=== PATIENT | male | born 1950 | race Caucasian/White ===

== ENCOUNTER 2019-02-24 10:04 | Inpatient (IN) | payer OTHER ==
[~2019-02-24] VITALS: Ht 165.1 cm; Wt 85.7 kg
[2019-02-24] MEDS ORDERED: ALBUTEROL (0.083%) 2.5MG/3ML NEB HHN STA (10:09)
[2019-02-24] MEDS ORDERED: IPRATROPIUM BROMIDE (0.02%) 0.5MG/2.5ML NEB HHN STA (10:09)
[2019-02-24 10:41] LABS: HEMATOCRIT. 28.2 % (42.0-52.0); HEMOGLOBIN. 9.4 g/dL (14.0-18.0); MEAN CORPUSCULAR VOLUME 87.1 fL (80.0-94.0); MEAN PLATELET VOLUME 8.2 fl (7.4-10.4); PLATELET 227 x1000/uL (130-400); RED BLOOD CELL COUNT 3.24 mill/uL (4.7-6.1); RED CELL DISTRIBUTION WIDTH 14.8 % (11.6-14.6)
[2019-02-24 10:48] LABS: CHLORIDE 106 mEq/L (98-107)
[2019-02-24 11:06] LABS: PLATELET ESTIMATE NORMAL
[2019-02-24] MEDS ORDERED: FUROSEMIDE 40MG/4ML VIAL IVP ONE (12:00)
[2019-02-24] MEDS ORDERED: PIPERACILLIN/TAZOBACTAM 3.375GM/50ML PREMIX IV ONE (12:30)
[2019-02-24] MEDS ORDERED: ZOLPIDEM TARTRATE 5MG TABLET PO PRN (13:45)
[2019-02-24] MEDS ORDERED: GUAIFENESIN 200MG/10ML SUGAR FREE UDC PO PRN (13:45)
[2019-02-24] MEDS ORDERED: ONDANSETRON HCL 4MG/2ML INJ IV PRN (13:45)
[2019-02-24] MEDS ORDERED: DEXTROSE 50% WATER 50ML SYRINGE IV PRN (13:45)
[2019-02-24] MEDS ORDERED: MAGNESIUM/ALUMINUM HYDROXIDE/SIMETHICONE 30ML UDC PO PRN (13:45)
[2019-02-24] MEDS ORDERED: CLONIDINE 0.1MG TABLET PO PRN (13:45)
[2019-02-24] MEDS ORDERED: NITROGLYCERIN 0.4MG TABLET SL SL PRN (13:45)
[2019-02-24 14:28] LABS: TOTAL IRON BINDING CAPACITY 194 ug/dL (250-450)
[2019-02-24 14:30] LABS: LDL CHOLESTEROL 29 mg/dL (5-100)
[2019-02-24 14:31] LABS: HDL CHOLESTEROL 37 mg/dL (40-59)
[2019-02-24 14:32] LABS: T4 FREE 1.63 ng/dL (0.76-1.46)
[2019-02-24 14:44] LABS: FOLIC ACID (FOLATE) SERUM 10.2 ng/mL (>5.38)
[2019-02-24 14:48] LABS: CREATINE KINASE MB FRACTION 2.9 ng/mL (0.5-3.6)
[2019-02-24 15:09] LABS: BG BASE EXCESS -0.6 mmol/L (-2.0-2.0); BG BILEVEL POS AIRWAY PRESSURE 15/5; BG CARBOXYHEMOGLOBIN 0.3 % (0.5-1.5); BG FRACTION INSPIRED OXYGEN 50; BG HCO3 ACT 23.3 mmol/L (22.0-26.0); BG METHEMOGLOBIN 0.2 % (0.0-1.5); BG OXYHEMOGLOBIN 92.5 % (94.0-97.0); BG PCO2 35.3 mmHg (35.0-45.0); BG PH 7.438 (7.350-7.450); BG PO2 72.3 mmHg (75.0-100.0); BG SAMPLE SITE RIGHT RADIAL; BG TOTAL HEMOGLOBIN 9.1 g/dL (12.0-18.0); BG VENT MODE MASK - BIPAP; BG VENT RATE 16 set
[2019-02-24 16:14] VITALS: BP 130/66
[2019-02-24 16:30] VITALS: BP 130/66
[2019-02-24] MEDS ORDERED: METOLAZONE 10MG TABLET PO NR (16:30)
[2019-02-24] MEDS ORDERED: AZITHROMYCIN 500 MG in DEXT 5% WATER 250 ML IV SCH (17:30)
[2019-02-24] MEDS: BLOOD SUGAR DIAGNOSTIC STRIP TEST SCH ×2 (17:30→21:00)
[2019-02-24] MEDS ORDERED: CEFTRIAXONE 1 G PREMIX 50 ML IV SCH (18:30)
[2019-02-24] MEDS: CARVEDILOL 3.125 MG TABLET PO SCH (18:45)
[2019-02-24] MEDS: FAMOTIDINE 20MG TABLET PO SCH (19:10)
[2019-02-24] MEDS: FUROSEMIDE 40MG/4ML VIAL IVP SCH (19:10)
[2019-02-24] MEDS: ENOXAPARIN 80MG/0.8ML SYR SUBCUT SCH (19:11)
[2019-02-24] MEDS: INSULIN LISPRO 100 UNITS/ML SUBCUT SCH ×2 (19:14→22:19)
[2019-02-24 20:00] VITALS: BP 140/72
[2019-02-24] MEDS: LISINOPRIL 20MG TABLET PO SCH (20:15)
[2019-02-24] MEDS: CEFTRIAXONE 1 G PREMIX 50 ML IV SCH (20:15)
[2019-02-24] MEDS: SPIRONOLACTONE 25MG TABLET PO SCH (20:15)
[2019-02-24] MEDS: ASCORBIC ACID 500 MG TABLET PO SCH (20:16)
[2019-02-24 22:00] VITALS: BP 140/74
[2019-02-25] VITALS (15 sets, daily range): BP systolic 127–172; BP diastolic 54–133
[2019-02-25] MEDS: TRAMADOL 50MG TABLET PO PRN (00:07)
[2019-02-25 00:39] LABS: CREATINE KINASE MB FRACTION 2.2 ng/mL (0.5-3.6)
[2019-02-25] MEDS: CARVEDILOL 3.125 MG TABLET PO SCH ×2 (06:30→17:46)
[2019-02-25] MEDS: FUROSEMIDE 40MG/4ML VIAL IVP SCH ×2 (06:30→17:45)
[2019-02-25] MEDS: ENOXAPARIN 80MG/0.8ML SYR SUBCUT SCH (06:31)
[2019-02-25] MEDS: BLOOD SUGAR DIAGNOSTIC STRIP TEST SCH ×4 (07:30→21:00)
[2019-02-25] MEDS: INSULIN LISPRO 100 UNITS/ML SUBCUT SCH ×4 (08:00→22:06)
[2019-02-25 08:16] LABS: INR 3.8; PROTHROMBIN TIME 36.6 sec (9.6-11.0)
[2019-02-25] MEDS ORDERED: ASPIRIN 325MG EC TABLET PO SCH (09:00)
[2019-02-25] MEDS ORDERED: METOLAZONE 10MG TABLET PO SCH (09:00)
[2019-02-25] MEDS ORDERED: CEFTRIAXONE 1 G PREMIX 50 ML IV SCH (09:00)
[2019-02-25] MEDS: SPIRONOLACTONE 25MG TABLET PO SCH ×2 (09:05→20:48)
[2019-02-25] MEDS: LISINOPRIL 20MG TABLET PO SCH ×2 (09:05→20:48)
[2019-02-25] MEDS: ASCORBIC ACID 500 MG TABLET PO SCH ×2 (09:05→20:48)
[2019-02-25] MEDS: ZINC SULFATE 220 MG ( 50 ) CAPSULE PO SCH (09:05)
[2019-02-25] MEDS: IPRATROPIUM/ALBUTEROL 0.5-3(2.5)MG/3ML NEB NEB PRN ×3 (09:17→17:06)
[2019-02-25 10:44] LABS: HEMATOCRIT. 26.9 % (42.0-52.0); HEMOGLOBIN. 8.9 g/dL (14.0-18.0); MEAN CORPUSCULAR HEMOGLOBIN 29.1 pg (28.0-32.0); MEAN CORPUSCULAR VOLUME 87.7 fL (80.0-94.0); MEAN PLATELET VOLUME 9.5 fl (7.4-10.4); PLATELET 175 x1000/uL (130-400); RED BLOOD CELL COUNT 3.07 mill/uL (4.7-6.1); RED CELL DISTRIBUTION WIDTH 15.3 % (11.6-14.6)
[2019-02-25 10:55] LABS: CREATINE KINASE MB FRACTION 2.4 ng/mL (0.5-3.6)
[2019-02-25 12:53] LABS: CHLORIDE 108 mEq/L (98-107)
[2019-02-25] MEDS: FAMOTIDINE 20MG TABLET PO SCH (17:45)
[2019-02-25] MEDS ORDERED: AZITHROMYCIN 500 MG in DEXT 5% WATER 250 ML IV SCH (18:00)
[2019-02-25] MEDS: CEFTRIAXONE 1 G PREMIX 50 ML IV SCH (20:48)
[2019-02-25 22:13] LABS: PLATELET ESTIMATE NORMAL
[2019-02-26] VITALS (71 sets, daily range): BP systolic 81–182; BP diastolic 47–107
[2019-02-26] MEDS: IPRATROPIUM/ALBUTEROL 0.5-3(2.5)MG/3ML NEB NEB PRN (01:02)
[2019-02-26] MEDS: TRAMADOL 50MG TABLET PO PRN (01:54)
[2019-02-26 02:33] LABS: *AMPHETAMINES SCREEN URINE NEGATIVE (NEGATIVE); *BARBITURATES SCREEN URINE NEGATIVE (NEGATIVE); *BENZODIAZEPINES SCREEN URINE NEGATIVE (NEGATIVE); *COCAINE SCREEN URINE NEGATIVE (NEGATIVE)
[2019-02-26 02:34] LABS: CANNABINOID URINE SCREEN NEGATIVE (NEGATIVE); METHADONE URINE SCREEN NEGATIVE (NEGATIVE); OPIATES URINE SCREEN NEGATIVE (NEGATIVE); PHENCYCLIDINE URINE SCREEN NEGATIVE (NEGATIVE)
[2019-02-26] MEDS: CARVEDILOL 3.125 MG TABLET PO SCH (05:47)
[2019-02-26 06:09] LABS: HEMATOCRIT. 23.7 % (42.0-52.0); MEAN CORPUSCULAR HEMOGLOBIN 29.1 pg (28.0-32.0); MEAN CORPUSCULAR VOLUME 86.3 fL (80.0-94.0); PLATELET 157 x1000/uL (130-400); RED BLOOD CELL COUNT 2.75 mill/uL (4.7-6.1); RED CELL DISTRIBUTION WIDTH 15.3 % (11.6-14.6)
[2019-02-26 06:42] LABS: CHLORIDE 105 mEq/L (98-107)
[2019-02-26 06:48] LABS: PHOSPHORUS 3.7 mg/dL (2.5-4.9)
[2019-02-26] MEDS: BLOOD SUGAR DIAGNOSTIC STRIP TEST SCH ×3 (07:30→21:11)
[2019-02-26] MEDS: INSULIN LISPRO 100 UNITS/ML SUBCUT SCH ×4 (07:58→21:22)
[2019-02-26] MEDS: FUROSEMIDE 40MG/4ML VIAL IVP SCH ×2 (08:35→17:52)
[2019-02-26] MEDS: ASPIRIN 81MG EC TABLET PO SCH (08:35)
[2019-02-26] MEDS: LISINOPRIL 20MG TABLET PO SCH ×2 (08:35→21:00)
[2019-02-26] MEDS: ASCORBIC ACID 500 MG TABLET PO SCH ×2 (08:35→21:21)
[2019-02-26] MEDS: ZINC SULFATE 220 MG ( 50 ) CAPSULE PO SCH (08:36)
[2019-02-26] MEDS: SPIRONOLACTONE 25MG TABLET PO SCH (08:36)
[2019-02-26 10:29] LABS: BG BASE EXCESS 5.1 mmol/L (-2.0-2.0); BG BILEVEL POS AIRWAY PRESSURE 17/5; BG CARBOXYHEMOGLOBIN 0.3 % (0.5-1.5); BG DEOXYHEMOGLOBIN 6.9 % (0.0-5.0); BG FRACTION INSPIRED OXYGEN 80; BG METHEMOGLOBIN 0.3 % (0.0-1.5); BG OXYGEN SATURATION 93.1 % (92.0-98.5); BG OXYHEMOGLOBIN 92.5 % (94.0-97.0); BG PCO2 39.8 mmHg (35.0-45.0); BG PH 7.481 (7.350-7.450); BG PO2 72.3 mmHg (75.0-100.0); BG SAMPLE SITE RIGHT BRACHIAL; BG TOTAL HEMOGLOBIN 7.8 g/dL (12.0-18.0); BG VENT MODE MASK - BIPAP
[2019-02-26] MEDS ORDERED: METOLAZONE 10MG TABLET PO SCH (10:45)
[2019-02-26 13:06] LABS: INR 3.7; PROTHROMBIN TIME 35.5 sec (9.6-11.0)
[2019-02-26] MEDS ORDERED: SODIUM CHLORIDE 0.9% 10ML VIAL ONE (13:45)
[2019-02-26] MEDS ORDERED: ETOMIDATE 2MG/ML 10ML VIAL IV ONE (13:45)
[2019-02-26] MEDS ORDERED: VECURONIUM BROMIDE 10 MG/VIAL IV ONE (13:45)
[2019-02-26] MEDS ORDERED: VANCOMYCIN 1500MG in DEXTROSE 5% WATER 250ML IV SCH (14:00)
[2019-02-26 14:32] LABS: BG BASE EXCESS 3.4 mmol/L (-2.0-2.0); BG CARBOXYHEMOGLOBIN 0.2 % (0.5-1.5); BG DEOXYHEMOGLOBIN 2.8 % (0.0-5.0); BG FRACTION INSPIRED OXYGEN 100; BG HCO3 ACT 29.1 mmol/L (22.0-26.0); BG OXYGEN SATURATION 97.2 % (92.0-98.5); BG PCO2 49.7 mmHg (35.0-45.0); BG PH 7.386 (7.350-7.450); BG PO2 115.2 mmHg (75.0-100.0); BG SAMPLE SITE LEFT RADIAL; BG TIDAL VOLUME(mL) 500 mL; BG TOTAL HEMOGLOBIN 10.6 g/dL (12.0-18.0); BG VENT MODE VENT - A/C; BG VENT RATE 16 set
[2019-02-26] MEDS: PROPOFOL 10MG/ML 100ML 100 ML IV PRN ×2 (14:32→20:16)
[2019-02-26] MEDS: PIPERACILLIN/TAZOBACTAM 2.25 G in DEXTROSE 5% WATER 50 ML IV SCH ×2 (14:32→21:21)
[2019-02-26] MEDS: FENTANYL CITRATE/PF 500 MCG in SODIUM CHLORIDE 0.9% 40 ML IV PRN ×2 (15:08→20:16)
[2019-02-26] MEDS: ACETYLCYSTEINE 100MG/ML 10% VIAL 4ML INH SCH (16:05)
[2019-02-26] MEDS: IPRATROPIUM/ALBUTEROL 0.5-3(2.5)MG/3ML NEB HHN SCH ×2 (16:05→21:05)
[2019-02-26 16:44] LABS: PLATELET ESTIMATE NORMAL
[2019-02-26] MEDS ORDERED: FUROSEMIDE 40MG/4ML VIAL IVP SCH (17:00)
[2019-02-26] MEDS: FAMOTIDINE 20MG TABLET PO SCH (17:00)
[2019-02-26] MEDS: CARVEDILOL 6.25 MG TABLET PO SCH (21:00)
[2019-02-27] VITALS (94 sets, daily range): BP systolic 79–135; BP diastolic 41–74
[2019-02-27] MEDS: ACETYLCYSTEINE 100MG/ML 10% VIAL 4ML INH SCH ×3 (01:04→16:21)
[2019-02-27] MEDS: IPRATROPIUM/ALBUTEROL 0.5-3(2.5)MG/3ML NEB HHN SCH ×6 (01:04→20:09)
[2019-02-27] MEDS: FENTANYL CITRATE/PF 500 MCG in SODIUM CHLORIDE 0.9% 40 ML IV PRN ×3 (03:17→17:53)
[2019-02-27] MEDS: ACETAMINOPHEN 325MG TABLET PO PRN ×2 (04:33→17:55)
[2019-02-27] MEDS: PIPERACILLIN/TAZOBACTAM 2.25 G in DEXTROSE 5% WATER 50 ML IV SCH ×3 (06:03→21:15)
[2019-02-27] MEDS: INSULIN LISPRO 100 UNITS/ML SUBCUT SCH ×4 (06:03→21:13)
[2019-02-27] MEDS: BLOOD SUGAR DIAGNOSTIC STRIP TEST SCH ×4 (06:03→21:13)
[2019-02-27 06:21] LABS: PROTHROMBIN TIME 40.2 sec (9.6-11.0)
[2019-02-27 06:22] LABS: HEMATOCRIT. 23.7 % (42.0-52.0); HEMOGLOBIN. 7.8 g/dL (14.0-18.0); MEAN CORPUSCULAR HEMOGLOBIN 28.6 pg (28.0-32.0); MEAN CORPUSCULAR VOLUME 87.6 fL (80.0-94.0); MEAN PLATELET VOLUME 9.2 fl (7.4-10.4); PLATELET 149 x1000/uL (130-400); RED BLOOD CELL COUNT 2.71 mill/uL (4.7-6.1); RED CELL DISTRIBUTION WIDTH 15.4 % (11.6-14.6)
[2019-02-27 06:38] LABS: CHLORIDE 104 mEq/L (98-107)
[2019-02-27 06:48] LABS: PHOSPHORUS 5.3 mg/dL (2.5-4.9)
[2019-02-27 07:25] LABS: INR 4.2
[2019-02-27 07:32] LABS: BG BASE EXCESS 7.7 mmol/L (-2.0-2.0); BG CARBOXYHEMOGLOBIN 0.4 % (0.5-1.5); BG DEOXYHEMOGLOBIN 2.2 % (0.0-5.0); BG FRACTION INSPIRED OXYGEN 80; BG HCO3 ACT 33.3 mmol/L (22.0-26.0); BG METHEMOGLOBIN 0.3 % (0.0-1.5); BG OXYGEN SATURATION 97.8 % (92.0-98.5); BG OXYHEMOGLOBIN 97.1 % (94.0-97.0); BG PCO2 55.5 mmHg (35.0-45.0); BG PH 7.396 (7.350-7.450); BG PO2 121.5 mmHg (75.0-100.0); BG SAMPLE SITE RIGHT RADIAL; BG TIDAL VOLUME(mL) 500 mL; BG TOTAL HEMOGLOBIN 6.5 g/dL (12.0-18.0); BG VENT MODE VENT - A/C; BG VENT RATE 14 set
[2019-02-27] MEDS: ASCORBIC ACID 500 MG TABLET PO SCH ×2 (08:13→21:13)
[2019-02-27] MEDS: ZINC SULFATE 220 MG ( 50 ) CAPSULE PO SCH (08:13)
[2019-02-27] MEDS: FUROSEMIDE 40MG/4ML VIAL IVP SCH (08:13)
[2019-02-27] MEDS: CARVEDILOL 6.25 MG TABLET PO SCH (08:15)
[2019-02-27] MEDS: LISINOPRIL 20MG TABLET PO SCH (08:15)
[2019-02-27] MEDS ORDERED: SODIUM BICARBONATE 4% (2.4MEQ) 5ML VIAL IV ONE (08:47)
[2019-02-27] MEDS ORDERED: LIDOCAINE HCL 1% 20ML VIAL (Pyxis) INJ ONE (08:47)
[2019-02-27] MEDS ORDERED: FUROSEMIDE 40MG/4ML VIAL IVP SCH (09:00)
[2019-02-27] MEDS ORDERED: POTASSIUM CHLORIDE 20MEQ TABLET SR PO SCH (09:00)
[2019-02-27] MEDS: ASPIRIN 81MG EC TABLET PO SCH (09:00)
[2019-02-27 09:21] LABS: CLARITY URINE TURBID (CLEAR); COLOR URINE YELLOW (YELLOW); KETONES URINE NEGATIVE (NEGATIVE); LEUKOCYTE ESTERASE URINE 2+ (NEGATIVE); NITRITE URINE NEGATIVE (NEGATIVE); OCCULT BLOOD URINE 2+ (NEGATIVE); PROTEIN URINE 1+ (NEGATIVE); SPECIFIC GRAVITY URINE 1.017 (1.005-1.030); UROBILINOGEN URINE 0.2 E.U./dL (0.2-1.0)
[2019-02-27] MEDS: PROPOFOL 10MG/ML 100ML 100 ML IV PRN (10:28)
[2019-02-27] MEDS ORDERED: ALBUMIN HUMAN 12.5GM/50ML (25%) IV ONE (11:15)
[2019-02-27] MEDS ORDERED: ALBUMIN HUMAN 12.5GM/50ML (25%) IV NR ×2 (12:00)
[2019-02-27] MEDS ORDERED: PROPOFOL 10MG/ML 100ML 100 ML IV PRN (12:01)
[2019-02-27] MEDS: FAMOTIDINE 20MG TABLET PO SCH (16:24)
[2019-02-27 16:48] LABS: PLATELET ESTIMATE NORMAL
[2019-02-27] MEDS: CARVEDILOL 3.125 MG TABLET PO SCH (21:14)
[2019-02-28] VITALS (99 sets, daily range): BP systolic 79–153; BP diastolic 40–99
[2019-02-28] MEDS: IPRATROPIUM/ALBUTEROL 0.5-3(2.5)MG/3ML NEB HHN SCH ×6 (00:14→20:41)
[2019-02-28] MEDS: ACETYLCYSTEINE 100MG/ML 10% VIAL 4ML INH SCH ×3 (00:15→16:35)
[2019-02-28] MEDS: FENTANYL CITRATE/PF 500 MCG in SODIUM CHLORIDE 0.9% 40 ML IV PRN ×2 (02:50→19:35)
[2019-02-28] MEDS: PIPERACILLIN/TAZOBACTAM 2.25 G in DEXTROSE 5% WATER 50 ML IV SCH ×3 (05:49→23:04)
[2019-02-28] MEDS: ACETAMINOPHEN 325MG TABLET PO PRN ×2 (05:49→19:48)
[2019-02-28] MEDS: INSULIN LISPRO 100 UNITS/ML SUBCUT SCH ×4 (06:00→20:30)
[2019-02-28] MEDS: BLOOD SUGAR DIAGNOSTIC STRIP TEST SCH ×4 (06:00→20:22)
[2019-02-28 06:27] LABS: HEMATOCRIT. 22.8 % (42.0-52.0); HEMOGLOBIN. 7.5 g/dL (14.0-18.0); MEAN CORPUSCULAR HEMOGLOBIN 29.1 pg (28.0-32.0); MEAN CORPUSCULAR VOLUME 88.5 fL (80.0-94.0); MEAN PLATELET VOLUME 9.3 fl (7.4-10.4); PLATELET 128 x1000/uL (130-400); RED BLOOD CELL COUNT 2.58 mill/uL (4.7-6.1)
[2019-02-28 06:33] LABS: PROTHROMBIN TIME 46.6 sec (9.6-11.0)
[2019-02-28] MEDS: NOREPINEPHRINE 16 MG in DEXT 5% WATER 234 ML IV PRN ×2 (06:33→09:49)
[2019-02-28 06:45] LABS: INR 4.9
[2019-02-28 08:58] LABS: BG BASE EXCESS 8.9 mmol/L (-2.0-2.0); BG CARBOXYHEMOGLOBIN 0.3 % (0.5-1.5); BG DEOXYHEMOGLOBIN 8.6 % (0.0-5.0); BG FRACTION INSPIRED OXYGEN 80; BG HCO3 ACT 35.3 mmol/L (22.0-26.0); BG METHEMOGLOBIN 0.4 % (0.0-1.5); BG OXYGEN SATURATION 91.3 % (92.0-98.5); BG OXYHEMOGLOBIN 90.7 % (94.0-97.0); BG PCO2 62.4 mmHg (35.0-45.0); BG PO2 68.6 mmHg (75.0-100.0); BG SAMPLE SITE RIGHT BRACHIAL; BG TIDAL VOLUME(mL) 500 mL; BG TOTAL HEMOGLOBIN 7.5 g/dL (12.0-18.0); BG VENT MODE VENT - A/C; BG VENT RATE 14 set
[2019-02-28] MEDS: CARVEDILOL 3.125 MG TABLET PO SCH ×2 (09:00→20:02)
[2019-02-28] MEDS ORDERED: LISINOPRIL 5MG TABLET PO SCH (09:00)
[2019-02-28 09:32] LABS: PLATELET ESTIMATE NORMAL
[2019-02-28] MEDS: ZINC SULFATE 220 MG ( 50 ) CAPSULE PO SCH (09:44)
[2019-02-28] MEDS: ASCORBIC ACID 500 MG TABLET PO SCH ×2 (09:44→20:02)
[2019-02-28] MEDS: ASPIRIN 81MG EC TABLET PO SCH (09:45)
[2019-02-28] MEDS ORDERED: VANCOMYCIN 1250MG in DEXTROSE 5% WATER 250ML IV SCH (10:00)
[2019-02-28] MEDS ORDERED: METOLAZONE 10MG TABLET PO SCH (12:30)
[2019-02-28] MEDS: FUROSEMIDE 100MG/10ML VIAL IVP SCH ×2 (12:44→20:02)
[2019-02-28 17:02] LABS: D-DIMER 14.85 mg/L FEU (<0.50)
[2019-02-28 17:31] LABS: FIBRINOGEN > 850 mg/dL (200-400)
[2019-02-28] MEDS: FAMOTIDINE 20MG TABLET PO SCH (18:17)
[2019-02-28] MEDS: PROPOFOL 10MG/ML 100ML 100 ML IV PRN (18:19)
[2019-03-01] VITALS (102 sets, daily range): BP systolic 77–189; BP diastolic 40–107
[2019-03-01] MEDS: IPRATROPIUM/ALBUTEROL 0.5-3(2.5)MG/3ML NEB HHN SCH ×7 (00:28→23:55)
[2019-03-01] MEDS: ACETYLCYSTEINE 100MG/ML 10% VIAL 4ML INH SCH ×4 (00:28→23:56)
[2019-03-01] MEDS: PROPOFOL 10MG/ML 100ML 100 ML IV PRN ×2 (02:26→07:53)
[2019-03-01 05:52] LABS: HEMATOCRIT. 21.4 % (42.0-52.0); MEAN CORPUSCULAR HEMOGLOBIN 29.1 pg (28.0-32.0); MEAN CORPUSCULAR VOLUME 88.3 fL (80.0-94.0); MEAN PLATELET VOLUME 9.3 fl (7.4-10.4); PLATELET 125 x1000/uL (130-400); RED BLOOD CELL COUNT 2.42 mill/uL (4.7-6.1); RED CELL DISTRIBUTION WIDTH 15.3 % (11.6-14.6)
[2019-03-01 05:57] LABS: PARTIAL THROMBOPLASTIN TIME 56.5 sec (23.4-31.0); PROTHROMBIN TIME 42.7 sec (9.6-11.0)
[2019-03-01 06:30] LABS: PHOSPHORUS 4.1 mg/dL (2.5-4.9)
[2019-03-01] MEDS: BLOOD SUGAR DIAGNOSTIC STRIP TEST SCH ×4 (06:41→20:53)
[2019-03-01] MEDS: PIPERACILLIN/TAZOBACTAM 2.25 G in DEXTROSE 5% WATER 50 ML IV SCH (06:49)
[2019-03-01 06:51] LABS: INR 4.5
[2019-03-01] MEDS: INSULIN LISPRO 100 UNITS/ML SUBCUT SCH ×4 (06:54→20:52)
[2019-03-01 07:45] LABS: BG BASE EXCESS 7.7 mmol/L (-2.0-2.0); BG CARBOXYHEMOGLOBIN 0.3 % (0.5-1.5); BG DEOXYHEMOGLOBIN 2.7 % (0.0-5.0); BG FRACTION INSPIRED OXYGEN 90; BG HCO3 ACT 32.4 mmol/L (22.0-26.0); BG METHEMOGLOBIN 0.3 % (0.0-1.5); BG OXYGEN SATURATION 97.3 % (92.0-98.5); BG OXYHEMOGLOBIN 96.7 % (94.0-97.0); BG PCO2 47.3 mmHg (35.0-45.0); BG PH 7.453 (7.350-7.450); BG PO2 109.1 mmHg (75.0-100.0); BG SAMPLE SITE RIGHT RADIAL; BG TIDAL VOLUME(mL) 500 mL; BG TOTAL HEMOGLOBIN 7.2 g/dL (12.0-18.0); BG VENT MODE VENT - A/C; BG VENT RATE 18 set
[2019-03-01 07:47] LABS: PLATELET ESTIMATE SLIGHTLY DECREASED
[2019-03-01] MEDS: CARVEDILOL 3.125 MG TABLET PO SCH ×2 (08:13→20:28)
[2019-03-01] MEDS: ASPIRIN 81MG EC TABLET PO SCH (08:14)
[2019-03-01] MEDS: FUROSEMIDE 100MG/10ML VIAL IVP SCH ×2 (08:14→21:11)
[2019-03-01] MEDS: ASCORBIC ACID 500 MG TABLET PO SCH ×2 (08:14→20:28)
[2019-03-01] MEDS: DOCUSATE SODIUM 100MG CAPSULE PO PRN (08:14)
[2019-03-01] MEDS: ZINC SULFATE 220 MG ( 50 ) CAPSULE PO SCH (08:14)
[2019-03-01] MEDS: ACETAMINOPHEN 325MG TABLET PO PRN ×3 (09:02→23:57)
[2019-03-01] MEDS: FENTANYL CITRATE/PF 500 MCG in SODIUM CHLORIDE 0.9% 40 ML IV PRN ×2 (09:10→18:04)
[2019-03-01] MEDS ORDERED: ALBUMIN HUMAN 12.5G/250ML (5%) IV PRN (09:30)
[2019-03-01] MEDS ORDERED: HEPARIN 1000 UNITS/ML 10ML ONE (09:45)
[2019-03-01] MEDS ORDERED: LIDOCAINE HCL 1% 20ML VIAL (Pyxis) INJ ONE (09:45)
[2019-03-01] MEDS ORDERED: PHYTONADIONE 10MG/ML AMP SUBCUT NR (11:00)
[2019-03-01 12:02] LABS: BG BASE EXCESS 8.7 mmol/L (-2.0-2.0); BG CARBOXYHEMOGLOBIN 0.3 % (0.5-1.5); BG DEOXYHEMOGLOBIN 3.9 % (0.0-5.0); BG FRACTION INSPIRED OXYGEN 90; BG HCO3 ACT 35.1 mmol/L (22.0-26.0); BG METHEMOGLOBIN 0.3 % (0.0-1.5); BG OXYGEN SATURATION 96.1 % (92.0-98.5); BG OXYHEMOGLOBIN 95.5 % (94.0-97.0); BG PCO2 58.4 mmHg (35.0-45.0); BG PH 7.397 (7.350-7.450); BG PO2 94.2 mmHg (75.0-100.0); BG SAMPLE SITE RIGHT RADIAL; BG TIDAL VOLUME(mL) 500 mL; BG VENT MODE VENT - A/C; BG VENT RATE 18 set
[2019-03-01] MEDS: MEROPENEM 1000MG in NORMAL SALINE 100ML IV SCH (14:58)
[2019-03-01] MEDS: MIDAZOLAM HCL 100 MG in DEXT 5% WATER 80 ML IV PRN (18:06)
[2019-03-01] MEDS: FAMOTIDINE 20MG TABLET PO SCH (18:33)
[2019-03-01] MEDS ORDERED: MEROPENEM 500 MG in SODIUM CHLORIDE 0.9% 50 ML IV SCH (21:00)
[2019-03-01] MEDS: FENTANYL CITRATE/PF 1,000 MCG in SODIUM CHLORIDE 0.9% 80 ML IV PRN (23:56)
[2019-03-02] VITALS (104 sets, daily range): BP systolic 73–182; BP diastolic 34–81
[2019-03-02] MEDS: IPRATROPIUM/ALBUTEROL 0.5-3(2.5)MG/3ML NEB HHN SCH ×5 (04:25→20:56)
[2019-03-02 05:57] LABS: BASOPHILS % 0.5 % (0.0-2.0); HEMATOCRIT. 25.2 % (42.0-52.0); HEMOGLOBIN. 8.3 g/dL (14.0-18.0); MEAN CORPUSCULAR HEMOGLOBIN 28.8 pg (28.0-32.0); MEAN PLATELET VOLUME 9.1 fl (7.4-10.4); NEUTROPHILS % 85.5 % (40.0-76.0); PLATELET 101 x1000/uL (130-400); RED CELL DISTRIBUTION WIDTH 16.2 % (11.6-14.6)
[2019-03-02 06:00] LABS: INR 1.7; PROTHROMBIN TIME 17.1 sec (9.6-11.0)
[2019-03-02 06:11] LABS: PHOSPHORUS 4.3 mg/dL (2.5-4.9)
[2019-03-02] MEDS: INSULIN LISPRO 100 UNITS/ML SUBCUT SCH ×4 (06:13→20:46)
[2019-03-02] MEDS: BLOOD SUGAR DIAGNOSTIC STRIP TEST SCH ×4 (06:30→20:45)
[2019-03-02] MEDS: MIDAZOLAM HCL 100 MG in DEXT 5% WATER 80 ML IV PRN (09:04)
[2019-03-02] MEDS: FENTANYL CITRATE/PF 1,000 MCG in SODIUM CHLORIDE 0.9% 80 ML IV PRN ×2 (09:06→20:47)
[2019-03-02] MEDS: ACETYLCYSTEINE 100MG/ML 10% VIAL 4ML INH SCH ×2 (09:10→15:49)
[2019-03-02] MEDS: NOREPINEPHRINE 16 MG in DEXT 5% WATER 234 ML IV PRN (09:22)
[2019-03-02] MEDS: CARVEDILOL 3.125 MG TABLET PO SCH ×2 (09:24→20:45)
[2019-03-02] MEDS: ZINC SULFATE 220 MG ( 50 ) CAPSULE PO SCH (09:24)
[2019-03-02] MEDS: ASPIRIN 81MG EC TABLET PO SCH (09:24)
[2019-03-02] MEDS: DOCUSATE SODIUM 100MG CAPSULE PO PRN (09:24)
[2019-03-02] MEDS: FUROSEMIDE 100MG/10ML VIAL IVP SCH ×2 (09:24→20:45)
[2019-03-02] MEDS: ASCORBIC ACID 500 MG TABLET PO SCH ×2 (09:24→20:45)
[2019-03-02] MEDS ORDERED: VANCOMYCIN 1250MG in DEXTROSE 5% WATER 250ML IV NR (12:00)
[2019-03-02] MEDS: MEROPENEM 1000MG in NORMAL SALINE 100ML IV SCH (15:18)
[2019-03-02] MEDS: DOCUSATE SODIUM SUGAR FREE 100MG/10ML UDC NG SCH (15:20)
[2019-03-02] MEDS: FAMOTIDINE 20MG TABLET PO SCH (18:14)
[2019-03-02] MEDS: LACTULOSE 20G/30ML UDC PO PRN (20:44)
[2019-03-03] VITALS (123 sets, daily range): BP systolic 56–190; BP diastolic 28–85
[2019-03-03] MEDS: IPRATROPIUM/ALBUTEROL 0.5-3(2.5)MG/3ML NEB HHN SCH ×6 (01:01→20:25)
[2019-03-03] MEDS: ACETYLCYSTEINE 100MG/ML 10% VIAL 4ML INH SCH ×3 (01:01→17:08)
[2019-03-03] MEDS: ACETAMINOPHEN 325MG TABLET PO PRN ×2 (01:27→21:33)
[2019-03-03] MEDS: MIDAZOLAM HCL 100 MG in DEXT 5% WATER 80 ML IV PRN (03:41)
[2019-03-03] MEDS: FENTANYL CITRATE/PF 1,000 MCG in SODIUM CHLORIDE 0.9% 80 ML IV PRN (05:57)
[2019-03-03] MEDS: BLOOD SUGAR DIAGNOSTIC STRIP TEST SCH ×4 (06:12→21:34)
[2019-03-03] MEDS: INSULIN LISPRO 100 UNITS/ML SUBCUT SCH ×4 (06:17→21:34)
[2019-03-03 06:52] LABS: BASOPHILS % 0.3 % (0.0-2.0); EOSINOPHILS % 2.1 % (0.0-5.0); HEMATOCRIT. 25.2 % (42.0-52.0); HEMOGLOBIN. 8.2 g/dL (14.0-18.0); LYMPHOCYTES % 7.9 % (20.0-50.0); MEAN CORPUSCULAR HEMOGLOBIN 28.6 pg (28.0-32.0); MEAN CORPUSCULAR VOLUME 88.2 fL (80.0-94.0); MEAN PLATELET VOLUME 9.4 fl (7.4-10.4); MONOCYTES % 3.8 % (2.0-8.0); NEUTROPHILS % 85.9 % (40.0-76.0); PLATELET 97 x1000/uL (130-400); RED BLOOD CELL COUNT 2.86 mill/uL (4.7-6.1); RED CELL DISTRIBUTION WIDTH 16.3 % (11.6-14.6)
[2019-03-03 07:07] LABS: CHLORIDE 104 mEq/L (98-107)
[2019-03-03 07:24] LABS: PHOSPHORUS 3.7 mg/dL (2.5-4.9)
[2019-03-03 07:36] LABS: INR 1.3; PROTHROMBIN TIME 12.8 sec (9.6-11.0)
[2019-03-03 07:44] LABS: BG BASE EXCESS -4.4 mmol/L (-2.0-2.0); BG CARBOXYHEMOGLOBIN 0.2 % (0.5-1.5); BG DEOXYHEMOGLOBIN 5.4 % (0.0-5.0); BG HCO3 ACT 24.4 mmol/L (22.0-26.0); BG METHEMOGLOBIN 0.3 % (0.0-1.5); BG OXYGEN SATURATION 94.6 % (92.0-98.5); BG OXYHEMOGLOBIN 94.1 % (94.0-97.0); BG PCO2 69.5 mmHg (35.0-45.0); BG PH 7.164 (7.350-7.450); BG PO2 84.8 mmHg (75.0-100.0); BG SAMPLE SITE RIGHT RADIAL; BG TIDAL VOLUME(mL) 500 mL; BG TOTAL HEMOGLOBIN 8.5 g/dL (12.0-18.0); BG VENT MODE VENT - A/C; BG VENT RATE 18 set
[2019-03-03] MEDS ORDERED: SODIUM BICARBONATE 8.4% 1 MEQ/ML 50ML SYR IV ONE (08:45)
[2019-03-03] MEDS: NOREPINEPHRINE 16 MG in DEXT 5% WATER 234 ML IV PRN (08:52)
[2019-03-03] MEDS: CARVEDILOL 3.125 MG TABLET PO SCH ×2 (09:00→21:00)
[2019-03-03] MEDS: ZINC SULFATE 220 MG ( 50 ) CAPSULE PO SCH (10:03)
[2019-03-03] MEDS: ASCORBIC ACID 500 MG TABLET PO SCH ×2 (10:03→21:32)
[2019-03-03] MEDS: ASPIRIN 81MG EC TABLET PO SCH (10:03)
[2019-03-03] MEDS: DOCUSATE SODIUM SUGAR FREE 100MG/10ML UDC NG SCH (10:04)
[2019-03-03] MEDS: FUROSEMIDE 100MG/10ML VIAL IVP SCH ×2 (10:05→21:33)
[2019-03-03] MEDS: MEROPENEM 500MG in NORMAL SALINE 50ML IV SCH ×2 (10:05→21:35)
[2019-03-03] MEDS ORDERED: ALBUMIN HUMAN 25GM/100ML (25%) IV NR (11:00)
[2019-03-03] MEDS: FAMOTIDINE 20MG TABLET PO SCH (17:33)
[2019-03-03] MEDS ORDERED: NOREPINEPHRINE 16 MG in SODIUM CHLORIDE 0.9% 234 ML IV PRN (20:30)
[2019-03-03] MEDS: NOREPINEPHRINE 16 MG in SODIUM CHLORIDE 0.9% 250 ML IV PRN (22:13)
[2019-03-04] VITALS (99 sets, daily range): BP systolic 80–170; BP diastolic 31–75
[2019-03-04] MEDS: IPRATROPIUM/ALBUTEROL 0.5-3(2.5)MG/3ML NEB HHN SCH ×7 (00:36→21:19)
[2019-03-04] MEDS: ACETYLCYSTEINE 100MG/ML 10% VIAL 4ML INH SCH ×3 (00:36→16:07)
[2019-03-04] MEDS: ACETAMINOPHEN 325MG TABLET PO PRN (02:01)
[2019-03-04 05:50] LABS: HEMATOCRIT. 22.5 % (42.0-52.0); HEMOGLOBIN. 7.4 g/dL (14.0-18.0); MEAN CORPUSCULAR HEMOGLOBIN 28.6 pg (28.0-32.0); MEAN CORPUSCULAR VOLUME 87.6 fL (80.0-94.0); MEAN PLATELET VOLUME 9.1 fl (7.4-10.4); PLATELET 76 x1000/uL (130-400); RED BLOOD CELL COUNT 2.57 mill/uL (4.7-6.1); RED CELL DISTRIBUTION WIDTH 15.9 % (11.6-14.6)
[2019-03-04] MEDS: BLOOD SUGAR DIAGNOSTIC STRIP TEST SCH ×4 (06:03→23:07)
[2019-03-04 06:05] LABS: PHOSPHORUS 4.9 mg/dL (2.5-4.9)
[2019-03-04] MEDS: INSULIN LISPRO 100 UNITS/ML SUBCUT SCH ×4 (06:06→23:11)
[2019-03-04] MEDS: ZINC SULFATE 220 MG ( 50 ) CAPSULE PO SCH (08:04)
[2019-03-04] MEDS: ASCORBIC ACID 500 MG TABLET PO SCH ×2 (08:04→22:03)
[2019-03-04] MEDS: DOCUSATE SODIUM SUGAR FREE 100MG/10ML UDC NG SCH (08:04)
[2019-03-04] MEDS: FUROSEMIDE 100MG/10ML VIAL IVP SCH ×2 (08:04→22:04)
[2019-03-04] MEDS: ASPIRIN 81MG EC TABLET PO SCH (08:04)
[2019-03-04] MEDS: CARVEDILOL 3.125 MG TABLET PO SCH ×2 (08:04→21:00)
[2019-03-04 08:17] LABS: BG BASE EXCESS -3.2 mmol/L (-2.0-2.0); BG CARBOXYHEMOGLOBIN 0.3 % (0.5-1.5); BG DEOXYHEMOGLOBIN 4.2 % (0.0-5.0); BG HCO3 ACT 24.2 mmol/L (22.0-26.0); BG METHEMOGLOBIN 0.3 % (0.0-1.5); BG OXYGEN SATURATION 95.8 % (92.0-98.5); BG OXYHEMOGLOBIN 95.2 % (94.0-97.0); BG PH 7.261 (7.350-7.450); BG PO2 89.1 mmHg (75.0-100.0); BG SAMPLE SITE RIGHT BRACHIAL; BG TIDAL VOLUME(mL) 500 mL; BG VENT MODE VENT - A/C; BG VENT RATE 24 set
[2019-03-04] MEDS: MEROPENEM 500MG in NORMAL SALINE 50ML IV SCH ×2 (09:55→22:55)
[2019-03-04 10:34] LABS: PLATELET ESTIMATE DECREASED
[2019-03-04] MEDS: NOREPINEPHRINE 16 MG in SODIUM CHLORIDE 0.9% 250 ML IV PRN (13:03)
[2019-03-04] MEDS ORDERED: VANCOMYCIN 1 G PREMIX 200 ML IV SCH (14:00)
[2019-03-04] MEDS: FAMOTIDINE 20MG TABLET PO SCH (16:39)
[2019-03-04] MEDS: COLISTIMETHATE SODIUM 150MG/VIAL INH SCH (22:14)
[2019-03-05] VITALS (105 sets, daily range): BP systolic 23–187; BP diastolic 16–120
[2019-03-05] MEDS: IPRATROPIUM/ALBUTEROL 0.5-3(2.5)MG/3ML NEB HHN SCH ×4 (00:42→20:44)
[2019-03-05] MEDS: ACETYLCYSTEINE 100MG/ML 10% VIAL 4ML INH SCH ×2 (00:43→09:17)
[2019-03-05] MEDS: LACTULOSE 20G/30ML UDC PO PRN (02:09)
[2019-03-05] MEDS: FENTANYL CITRATE/PF 1,000 MCG in SODIUM CHLORIDE 0.9% 80 ML IV PRN (03:04)
[2019-03-05] MEDS: BLOOD SUGAR DIAGNOSTIC STRIP TEST SCH ×4 (05:33→23:48)
[2019-03-05 05:35] LABS: HEMATOCRIT. 22.4 % (42.0-52.0); HEMOGLOBIN. 7.4 g/dL (14.0-18.0); MEAN CORPUSCULAR HEMOGLOBIN 28.7 pg (28.0-32.0); MEAN CORPUSCULAR VOLUME 86.9 fL (80.0-94.0); MEAN PLATELET VOLUME 9.8 fl (7.4-10.4); PLATELET 74 x1000/uL (130-400); RED BLOOD CELL COUNT 2.58 mill/uL (4.7-6.1); RED CELL DISTRIBUTION WIDTH 16.1 % (11.6-14.6)
[2019-03-05] MEDS: INSULIN LISPRO 100 UNITS/ML SUBCUT SCH ×4 (05:38→23:48)
[2019-03-05 06:10] LABS: PHOSPHORUS 5.7 mg/dL (2.5-4.9)
[2019-03-05] MEDS: DOCUSATE SODIUM SUGAR FREE 100MG/10ML UDC NG SCH (08:16)
[2019-03-05] MEDS: FUROSEMIDE 100MG/10ML VIAL IVP SCH ×2 (08:17→21:00)
[2019-03-05] MEDS: ZINC SULFATE 220 MG ( 50 ) CAPSULE PO SCH (08:17)
[2019-03-05] MEDS: CARVEDILOL 3.125 MG TABLET PO SCH (08:17)
[2019-03-05] MEDS: ASPIRIN 81MG EC TABLET PO SCH (08:17)
[2019-03-05] MEDS: ASCORBIC ACID 500 MG TABLET PO SCH ×2 (08:17→21:00)
[2019-03-05 09:04] LABS: BG BASE EXCESS -1.3 mmol/L (-2.0-2.0); BG CARBOXYHEMOGLOBIN 0.4 % (0.5-1.5); BG DEOXYHEMOGLOBIN 3.2 % (0.0-5.0); BG FRACTION INSPIRED OXYGEN 90; BG HCO3 ACT 26.8 mmol/L (22.0-26.0); BG METHEMOGLOBIN 0.1 % (0.0-1.5); BG OXYGEN SATURATION 96.8 % (92.0-98.5); BG OXYHEMOGLOBIN 96.3 % (94.0-97.0); BG PCO2 60.8 mmHg (35.0-45.0); BG PH 7.262 (7.350-7.450); BG PO2 106.3 mmHg (75.0-100.0); BG SAMPLE SITE RIGHT RADIAL; BG TIDAL VOLUME(mL) 500 mL; BG TOTAL HEMOGLOBIN 12.5 g/dL (12.0-18.0); BG VENT MODE VENT - A/C; BG VENT RATE 26 set
[2019-03-05] MEDS ORDERED: PHENYLEPHRINE 40 MG in DEXT 5% WATER 246 ML IV PRN (09:45)
[2019-03-05] MEDS ORDERED: NOREPINEPHRINE 16 MG in SODIUM CHLORIDE 0.9% 234 ML IV PRN (10:08)
[2019-03-05 10:11] LABS: BG BASE EXCESS -3.3 mmol/L (-2.0-2.0); BG CARBOXYHEMOGLOBIN 0.3 % (0.5-1.5); BG FRACTION INSPIRED OXYGEN 90; BG HCO3 ACT 26.6 mmol/L (22.0-26.0); BG METHEMOGLOBIN 0.2 % (0.0-1.5); BG OXYGEN SATURATION 69.8 % (92.0-98.5); BG OXYHEMOGLOBIN 69.5 % (94.0-97.0); BG PCO2 82.8 mmHg (35.0-45.0); BG PH 7.124 (7.350-7.450); BG PO2 52.9 mmHg (75.0-100.0); BG SAMPLE SITE RIGHT RADIAL; BG TIDAL VOLUME(mL) 500 mL; BG TOTAL HEMOGLOBIN 8.4 g/dL (12.0-18.0); BG VENT MODE VENT - A/C; BG VENT RATE 30 set
[2019-03-05] MEDS: MEROPENEM 500MG in NORMAL SALINE 50ML IV SCH ×2 (10:14→22:43)
[2019-03-05] MEDS: COLISTIMETHATE SODIUM 150MG/VIAL INH SCH ×2 (10:59→21:45)
[2019-03-05 11:00] LABS: PLATELET ESTIMATE DECREASED
[2019-03-05 11:13] LABS: HEMATOCRIT. 23.9 % (42.0-52.0); HEMOGLOBIN. 7.9 g/dL (14.0-18.0); MEAN CORPUSCULAR HEMOGLOBIN 29.1 pg (28.0-32.0); MEAN CORPUSCULAR VOLUME 88.3 fL (80.0-94.0); RED BLOOD CELL COUNT 2.71 mill/uL (4.7-6.1); RED CELL DISTRIBUTION WIDTH 16.1 % (11.6-14.6)
[2019-03-05 11:31] LABS: PHOSPHORUS 7.2 mg/dL (2.5-4.9)
[2019-03-05 11:37] LABS: CREATINE KINASE MB FRACTION 1.3 ng/mL (0.5-3.6)
[2019-03-05 12:02] LABS: PLATELET ESTIMATE SLIGHTL
[2019-03-05 12:03] LABS: PLATELET 98 x1000/uL (130-400)
[2019-03-05 13:22] LABS: BG BASE EXCESS -5.4 mmol/L (-2.0-2.0); BG CARBOXYHEMOGLOBIN 0.3 % (0.5-1.5); BG DEOXYHEMOGLOBIN 16.6 % (0.0-5.0); BG FRACTION INSPIRED OXYGEN 90; BG HCO3 ACT 21.7 mmol/L (22.0-26.0); BG METHEMOGLOBIN 0.3 % (0.0-1.5); BG OXYGEN SATURATION 83.3 % (92.0-98.5); BG OXYHEMOGLOBIN 82.8 % (94.0-97.0); BG PH 7.247 (7.350-7.450); BG PO2 53.4 mmHg (75.0-100.0); BG SAMPLE SITE RIGHT RADIAL; BG TIDAL VOLUME(mL) 500 mL; BG TOTAL HEMOGLOBIN 8.1 g/dL (12.0-18.0); BG VENT MODE VENT - A/C; BG VENT RATE 30 set
[2019-03-05] MEDS ORDERED: PHENYLEPHRINE 80 MG in DEXT 5% WATER 500 ML IV PRN (14:30)
[2019-03-05] MEDS ORDERED: NOREPINEPHRINE 32 MG in DEXT 5% WATER 468 ML IV PRN (14:30)
[2019-03-05] MEDS ORDERED: PHENYLEPHRINE 80 MG in DEXT 5% WATER 492 ML IV PRN (15:00)
[2019-03-05] MEDS: FAMOTIDINE 20MG TABLET PO SCH (17:00)
[2019-03-05] MEDS ORDERED: VASOPRESSIN 10 UNIT in SODIUM CHLORIDE 0.9% 99.5 ML IV PRN (18:00)
[2019-03-06] VITALS (11 sets, daily range): BP systolic 64–120; BP diastolic 36–60
[2019-03-06] MEDS: ACETYLCYSTEINE 100MG/ML 10% VIAL 4ML INH SCH (00:51)
[2019-03-06] MEDS: IPRATROPIUM/ALBUTEROL 0.5-3(2.5)MG/3ML NEB HHN SCH (00:51)
== END 2019-03-06 02:18 | disposition expired | DRG 207 ==
LOC: ER 10:04 → 5EST 13:31 → ENRESERV 14:12 → MICUNO 02-26 13:47
PROVIDERS: ADMIT Internal Medicine; ATTEND Internal Medicine
PROC: 5A1955Z Respiratory Ventilation, Greater than 96 Consecutive Hours (ICD-10-PCS; principal; 2019-02-24)
PROC: 30233N1 Transfusion of Nonautologous Red Blood Cells into Peripheral Vein, Percutaneous Approach (ICD-10-PCS; 2019-02-24)
PROC: 30233K1 Transfusion of Nonautologous Frozen Plasma into Peripheral Vein, Percutaneous Approach (ICD-10-PCS; 2019-02-24)
PROC: 5A1D70Z Performance of Urinary Filtration, Intermittent, Less than 6 Hours Per Day (ICD-10-PCS; 2019-02-24)
PROC: 5A1D70Z Performance of Urinary Filtration, Intermittent, Less than 6 Hours Per Day (ICD-10-PCS; 2019-02-24)
PROC: 5A1D70Z Performance of Urinary Filtration, Intermittent, Less than 6 Hours Per Day (ICD-10-PCS; 2019-02-24)
PROC: 05HY33Z Insertion of Infusion Device into Upper Vein, Percutaneous Approach (ICD-10-PCS; 2019-02-24)
DX: J96.01 Acute respiratory failure with hypoxia (principal); A41.9 Sepsis, unspecified organism; I21.4 Non-ST elevation (NSTEMI) myocardial infarction; E43 Unspecified severe protein-calorie malnutrition; G92 Toxic encephalopathy; J18.1 Lobar pneumonia, unspecified organism; N17.0 Acute kidney failure with tubular necrosis; I63.9 Cerebral infarction, unspecified; R65.21 Severe sepsis with septic shock; R65.20 Severe sepsis without septic shock; D68.9 Coagulation defect, unspecified; J44.0 Chronic obstructive pulmonary disease with (acute) lower respiratory infection; I50.40 Unspecified combined systolic (congestive) and diastolic (congestive) heart failure; I13.0 Hypertensive heart and chronic kidney disease with heart failure and stage 1 through stage 4 chronic kidney disease, or unspecified chronic kidney disease; I47.1 Supraventricular tachycardia; J44.1 Chronic obstructive pulmonary disease with (acute) exacerbation; J96.02 Acute respiratory failure with hypercapnia; E11.65 Type 2 diabetes mellitus with hyperglycemia; I25.10 Atherosclerotic heart disease of native coronary artery without angina pectoris; D63.8 Anemia in other chronic diseases classified elsewhere; N18.9 Chronic kidney disease, unspecified; D69.6 Thrombocytopenia, unspecified; E11.22 Type 2 diabetes mellitus with diabetic chronic kidney disease; E78.5 Hyperlipidemia, unspecified; I25.5 Ischemic cardiomyopathy; I46.9 Cardiac arrest, cause unspecified; T45.515A Adverse effect of anticoagulants, initial encounter; Z77.22 Contact with and (suspected) exposure to environmental tobacco smoke (acute) (chronic); Z79.01 Long term (current) use of anticoagulants; Z79.4 Long term (current) use of insulin; Z82.49 Family history of ischemic heart disease and other diseases of the circulatory system; Z83.3 Family history of diabetes mellitus; Z86.73 Personal history of transient ischemic attack (TIA), and cerebral infarction without residual deficits; Z87.01 Personal history of pneumonia (recurrent); Z95.1 Presence of aortocoronary bypass graft; Z99.81 Dependence on supplemental oxygen; Z68.31 Body mass index [BMI] 31.0-31.9, adult; I25.2 Old myocardial infarction
CPT/HCPCS: 36415; 36600; 71045; 71250; 76700; 76770; 76937; 80048; 80053; 80061; 80202; 80305; 81003; 82375; 82550; 82553; 82607; 82746; 82805; 82962; 83036; 83540; 83550; 83735; 83880; 84100; 84134; 84145; 84439; 84443; 84478; 84484; 85025; 85379; 85384; 86850; 86900; 86920; 86927; 87070; 87804; 93005; 93306; 93970; 94002; 94003; 94640; 94644; 94660; 99291; A6261; C1725; C1752; J0456; J0696; J0770; J1644; J1650; J1815; J1940; J2185; J2250; J2370; J2405; J2543; J2704; J3010; J3370; J3430; J3490; J7030; J7040; J7050; J7060; J7608; P9016; P9017; P9041; P9047; A4315